=== PATIENT | female | born 1975 | race Caucasian/White ===

== ENCOUNTER 2018-04-03 05:57 | Day surgery (SDC) | payer BC ==
[~2018-04-03 05:57] MED LIST: Buffered Lidocaine 0.9% SYRIN* 5 ML/SYR SYRINGE INTRADERM ONE
[2018-04-03] MEDS ORDERED: Gabapentin CAP(*) 300 MG PO ONE (06:00)
[2018-04-03] MEDS ORDERED: Acetaminophen TAB* 325 MG PO ONE (06:00)
[2018-04-03] MEDS ORDERED: Gabapentin CAP(*) 300 MG ONE (06:27)
[2018-04-03] MEDS ORDERED: Acetaminophen TAB* 325 MG ONE (06:28)
[2018-04-03] MEDS ORDERED: Bupivacaine 0.5% W/EPI SDV* 30 ML VIAL ONE (06:59)
[2018-04-03] MEDS ORDERED: fentaNYL* 50 MCG/ML 2 ML VIAL (100 MCG VIAL) ONE (07:10)
[2018-04-03] MEDS ORDERED: Midazolam* 1 MG/ML 2 ML VIAL (2 MG) ONE (07:10)
[2018-04-03] MEDS ORDERED: Scopolamine 1.5 mg* PATCH ONE (07:24)
[2018-04-03] MEDS ORDERED: Cisatracurium* 2 MG/ML MDV 5 ML ONE (07:41)
[2018-04-03] MEDS ORDERED: KETAMINE HCL* 50 MG/ML 10 ML VIAL ONE (07:52)
[2018-04-03] MEDS ORDERED: Ondansetron INJ* 2 MG/ML VIAL ONE ×2 (07:52→10:37)
[2018-04-03] MEDS ORDERED: Dexamethasone IV* 4 MG/ML 1 ML (4 MG) ONE (07:52)
[2018-04-03] MEDS ORDERED: Ketorolac INJ* 30 MG/ML 1 ML VIAL ONE (07:52)
[2018-04-03] MEDS ORDERED: Famotidine IV* 10 MG/ML 2 ML (20 mg) ONE (07:52)
[2018-04-03] MEDS ORDERED: Lidocaine 2% PF * 5 ML VIAL ONE (07:52)
[2018-04-03] MEDS ORDERED: Propofol* 10 MG/ML 20 ML BTL IV PUSH ONE (07:52)
[2018-04-03] MEDS ORDERED: EPHEDrine (Pressors)* 50 MG/ML VIAL ONE (08:02)
[2018-04-03] MEDS ORDERED: Hetastarch 6% in NS* 500 ML IV ONE (08:04)
[2018-04-03] MEDS ORDERED: DiMENhydriNATE IV* 50 MG/ML VIAL IV PUSH PRN (08:27)
[2018-04-03] MEDS ORDERED: Acetaminophen IV 1GM/100ML * 1,000 MG/100 ML VIAL IVPB PRN (08:27)
[2018-04-03] MEDS ORDERED: PROCHLORPERAZINE INJ 5 MG/ML 2 ML VIAL IV PRN (08:27)
[2018-04-03] MEDS ORDERED: diPHENhydraMINE IV* 50 MG/ML 1 ml VIAL (BENADRYL) IV PRN (08:27)
[2018-04-03] MEDS ORDERED: fentaNYL* 50 MCG/ML 2 ML VIAL (100 MCG VIAL) IV PRN (08:27)
[2018-04-03] MEDS ORDERED: Ondansetron INJ* 2 MG/ML VIAL IV PRN (08:27)
[2018-04-03] MEDS ORDERED: Naloxone* 0.4 MG/ML 1 ML VIAL IV PRN (08:27)
[2018-04-03] MEDS ORDERED: HYDROmorphone INJ1* 1 MG/ML SYRINGE IV PRN (08:27)
[2018-04-03] MEDS ORDERED: Neostigmine Methylsulfate* 2 MG/2 ML SYRINGE ONE (08:43)
--- NOTE | 2018-04-03 10:31 | OP ---
DATE OF OPERATION: 04/03/18 - [facility] DATE OF : 77 SURGEON: Kevin Apodaca MD [employer] SUPERVISOR: None. ANESTHESIA: General anesthetic with endotracheal intubation. PRE-OP DIAGNOSES: Chronic pelvic pain, prior tubal ligation and prior endometrial ablation. POST-OP DIAGNOSES: Chronic pelvic pain, prior tubal ligation and prior endometrial ablation along with a stenotic internal cervical os and lower uterine segment. OPERATIVE PROCEDURE: Diagnostic laparoscopy. ESTIMATED BLOOD LOSS: None. SPECIMENS SENT TO PATHOLOGY: There were no specimens sent to pathology. IV FLUIDS: She received 1500 cc of IV fluid consisting of 1000 cc of IV crystalloid fluid and 500 cc of Hespan. URINE OUTPUT: 100 cc of clear urine. FINDINGS: Exam under anesthesia revealed normal external genitalia, normal mons pubis, normal clitoral elliott, normal urethral meatus, normal introitus. On speculum exam, she had normal vaginal mucosa. Her cervix was grossly normal. The cervical canal sounded 3 to 4 cm, was unable to sound the uterus secondary to the stenotic internal cervical os and lower uterine segment. On laparoscopy, she was noted to have a normal uterus, evidence of a prior tubal ligation with normal remaining tubes, normal ovaries, normal bowel and bladder. No adhesions were noted and a normal liver edge. DESCRIPTION OF PROCEDURE: The patient was taken to the operating room where she was identified. She was placed on the operating table where a general anesthetic was obtained with endotracheal intubation. She was then placed in the dorsal lithotomy position, prepped and draped in the normal sterile fashion. Attention was then brought onto the patient's perineum, where an exam under anesthesia was performed. The bladder was catheterized with a Head catheter and drained of clear urine, after which I inserted a side view speculum into the patient's vagina. Cervix was identified, grasped with single- toothed tenaculum. I proceeded to sound the uterus; however, I was unable to sound beyond 3 to 4 cm in the length of the cervix, as there was a stenotic internal cervical os and lower uterine segment. After the exam under anesthesia of perineum, I removed the speculum, I left a sponge stick in the patient's vagina. Attention was then brought onto the patient's abdomen where a 1 cm infraumbilical skin incision was made with a knife and carried through to underlying layer of fascia. The fascia was then grasped with Guillaume clamps, brought up into the incision, and incised immediately and through this incision a 5 mm trocar was introduced. The balloon in the trocar was insufflated with the air. The patient's abdomen was insufflated with CO2 gas. The patient was placed in a Trendelenburg position. A second trocar was introduced in the patient's right upper quadrant of the abdomen under direct visualization. I then proceeded to take a survey of the patient's intra-abdominal and pelvic anatomy and this revealed findings as noted above. The uterus was mobile. There were no adhesions. There was no evidence of endometriosis or any normal lesions. At this point, I proceeded to remove all instruments from the patient' s abdomen. The CO2 gas from the abdomen was also removed. The umbilical fascia incision was closed with 0 Polysorb suture in a running fashion and the skin incisions were closed using 4-0 Vicryl and a subcuticular stitch. The Head, instruments from the patient's vagina were also removed. Sponge, lap, needle counts were correct x2. She was then transferred to recovery room area in stable condition. [id number]/[facility] #: [id number] KRUPA
[2018-04-03 10:35] VITALS: BP 104/65
[2018-04-06] MEDS ORDERED: Scopolamine PATCH Remove* 1 NOTE MISC PATCH OFF ONE (08:28)
== END 2018-04-03 10:54 | disposition home or self-care (01) ==
LOC: OR 05:57
PROVIDERS: ATTEND Obstetrics & Gynecology
DX: R10.2 Pelvic and perineal pain (principal); N94.10 Unspecified dyspareunia; N94.6 Dysmenorrhea, unspecified; Q63.0 Accessory kidney; F41.9 Anxiety disorder, unspecified
CPT/HCPCS: A9270-GY; J1100; J1885; J2250; J2405; J2704; J3010

== ENCOUNTER 2018-07-24 07:35 | Observation (INO) | payer BC ==
[~2018-07-24 07:35] MED LIST changes: -Buffered Lidocaine 0.9% SYRIN* 5 ML/SYR SYRINGE INTRADERM ONE; +Buffered Lidocaine 1% SYRIN* 1 ML/SYRINGE INTRADERM ONE; +Lactated Ringers 1000 ML Bag* 1,000 ML IV SCH
[2018-07-24] MEDS ORDERED: Scopolamine 1.5 mg* PATCH ONE (10:15)
[2018-07-24] MEDS ORDERED: Famotidine IV* 10 MG/ML 2 ML (20 mg) ONE (10:15)
[2018-07-24] MEDS ORDERED: Bupivacaine 0.5% W/EPI SDV* 30 ML VIAL ONE (10:15)
[2018-07-24] MEDS ORDERED: Propofol* 10 MG/ML 20 ML BTL ONE ×2 (10:20→13:03)
[2018-07-24] MEDS ORDERED: Dexamethasone IV* 4 MG/ML 1 ML (4 MG) ONE (10:20)
[2018-07-24] MEDS ORDERED: fentaNYL* 50 MCG/ML 2 ML VIAL (100 MCG VIAL) ONE (10:20)
[2018-07-24] MEDS ORDERED: Midazolam* 1 MG/ML 5 ML VIAL (5 MG) ONE (10:21)
[2018-07-24] MEDS ORDERED: Rocuronium* 10 MG/ML VIAL ONE ×2 (10:21→11:21)
[2018-07-24] MEDS ORDERED: ceFAZolin VIAL(*) VIAL ONE (10:57)
[2018-07-24] MEDS ORDERED: ceFOXitin(*) 1 GM VIAL ONE (10:57)
[2018-07-24] MEDS ORDERED: ceFOXitin 2 GM IVPREMIX* 2 GM/50 ML BAG ONE (10:59)
[2018-07-24] MEDS ORDERED: Ketorolac INJ* 30 MG/ML 1 ML VIAL ONE (12:33)
[2018-07-24] MEDS ORDERED: Ondansetron INJ* 2 MG/ML VIAL ONE (12:33)
[2018-07-24] MEDS ORDERED: Neostigmine Methylsulfate* 3 MG/3 ML SYRINGE ONE (12:55)
[2018-07-24] MEDS ORDERED: Glycopyrrolate IV* 0.2 MG/ML 1 ML VIAL ONE (12:55)
[2018-07-24] MEDS ORDERED: Metoclopramide IV* 5 MG/ML 2 ML VIAL IV PRN (13:19)
[2018-07-24] MEDS ORDERED: Naloxone* 0.4 MG/ML 1 ML VIAL IV PRN (13:19)
[2018-07-24] MEDS ORDERED: DiMENhydriNATE IV* 50 MG/ML VIAL IV PUSH PRN (13:19)
[2018-07-24] MEDS ORDERED: PROCHLORPERAZINE INJ 5 MG/ML 2 ML VIAL IV PRN (13:19)
[2018-07-24] MEDS ORDERED: fentaNYL* 50 MCG/ML 2 ML VIAL (100 MCG VIAL) IV PRN (13:19)
[2018-07-24] MEDS ORDERED: HYDROmorphone INJ1* 1 MG/ML SYRINGE ONE (13:43)
[2018-07-24] MEDS: HYDROmorphone INJ1* 1 MG/ML SYRINGE IV PRN ×3 (13:46→15:55)
[2018-07-24] MEDS ORDERED: Lactated Ringers 1000 ML Bag* 1,000 ML IV SCH (14:00)
[2018-07-24] MEDS: Acetaminophen TAB* 325 MG PO PRN (18:22)
[2018-07-24] MEDS: Ibuprofen TAB* 600 MG PO PRN (20:46)
[2018-07-25] MEDS: Acetaminophen TAB* 325 MG PO PRN (02:54)
[2018-07-25 05:41] LABS: ABS Basophils 0 10^3/ul (0-0.2); ABS Eosinophils 0 10^3/ul (0-0.6); ABS Lymphocytes 1.3 10^3/ul (1.0-4.8); ABS Monocytes 0.8 10^3/ul (0-0.8); ABS Neutrophils 7.1 10^3/ul (1.5-7.7); ABS Nucleated RBC 0 10^3/ul; Eosinophil % 0.2 %; Hematocrit 37 % (35-47); Hemoglobin 12.8 g/dl (12.0-16.0); Lymphocyte % 14.1 %; Mean Corpuscular HGB Conc 35 g/dl (31-36); Mean Corpuscular Hemoglobin 30 pg (27-31); Mean Corpuscular Volume 87 fL (80-97); Mean Platelet Volume 7.8 fL (7.4-10.4); Nucleated Red Blood Cells % 0.1; Platelet Count 204 10^3/ul (150-450); Red Blood Count 4.28 10^6/ul (4.00-5.40); Red Cell Distribution Width 13 % (10.5-15); White Blood Count 9.3 10^3/ul (3.5-10.8)
[2018-07-25] MEDS ORDERED: Simethicone TAB* 80 MG TAB.CHEW PO PRN (09:11)
[2018-07-25] MEDS ORDERED: Docusate CAP* 100 MG PO PRN (09:12)
--- NOTE | 2018-07-25 11:03 | SURGPN ---
Subjective - Introduction -: 42 y/o lady with chronic pelvic pain. Admitted on: [07/24/18] Patient's surgical date: 07/24/18 Procedure completed: Laparoscopic supracervical hysterectomy - Medications -: Active Medications Generic Name Dose Route Start Last Admin Trade Name Etienneq PRN Reason Stop Dose Admin Acetaminophen 650 mg 07/24/18 13:25 07/25/18 02:54 Tylenol Tab* PO 650 mg Q6H PRN Administration PAIN Docusate Sodium 100 mg 07/25/18 09:12 Colace Cap* PO BID PRN CONSTIPATION Ibuprofen 600 mg 07/24/18 13:20 07/24/18 20:46 Motrin Tab* PO 600 mg Q6H PRN Administration PAIN - MILD Simethicone 80 mg 07/25/18 09:11 Mylicon Tab* PO Q6H PRN DYSPEPSIA - Comments Comments: Patient rates her pain 3/10 with PO medications. She denies Nausea/vomiting, chest pain or shortness of breath. Objective - Objective -: Vital Signs Temp Pulse Resp BP Pulse Ox 98.6 F 61 20 100/58 100 07/25/18 08:01 07/25/18 07:36 07/25/18 08:00 07/25/18 09:26 07/25/18 07:36 Laboratory Last Values WBC 9.3 10^3/ul (3.5-10.8) 07/25/18 04:57 RBC 4.28 10^6/ul (4.00-5.40) 07/25/18 04:57 Hgb 12.8 g/dl (12.0-16.0) 07/25/18 04:57 Hct 37 % (35-47) 07/25/18 04:57 MCV 87 fL (80-97) 07/25/18 04:57 MCH 30 pg (27-31) 07/25/18 04:57 MCHC 35 g/dl (31-36) 07/25/18 04:57 RDW 13 % (10.5-15) 07/25/18 04:57 Plt Count 204 10^3/ul (150-450) 07/25/18 04:57 MPV 7.8 fL (7.4-10.4) 07/25/18 04:57 Neut % (Auto) 76.6 % 07/25/18 04:57 Lymph % (Auto) 14.1 % 07/25/18 04:57 [place] % (Auto) 8.9 % 07/25/18 04:57 Eos % (Auto) 0.2 % 07/25/18 04:57 Baso % (Auto) 0.2 % 07/25/18 04:57 Absolute Neuts (auto) 7.1 10^3/ul (1.5-7.7) 07/25/18 04:57 Absolute Lymphs (auto) 1.3 10^3/ul (1.0-4.8) 07/25/18 04:57 Absolute Monos (auto) 0.8 10^3/ul (0-0.8) 07/25/18 04:57 Absolute Eos (auto) 0 10^3/ul (0-0.6) 07/25/18 04:57 Absolute Basos (auto) 0 10^3/ul (0-0.2) 07/25/18 04:57 Absolute Nucleated RBC 0 10^3/ul 07/25/18 04:57 Nucleated RBC % 0.1 07/25/18 04:57 - Intake and Output -: Intake & Output 07/23/18 07/24/18 07/25/18 07/26/18 06:59 06:59 06:59 06:59 Intake Total 4000 Output Total 1600 500 Balance 2400 -500 Weight 144 lb 6.4 oz Intake: IV Fluids 2980 LR 2980 Oral 1020 Output: Urine 500 Head 1600 Other: # Bowel Movements 0 Estimated Blood Loss MINIMAL Comment ADLs: Meal Record Start: 07/24/18 16: 28 Freq: Status: Active Protocol: Created 07/24/18 16:28 [id number] (Rec: 07/24/18 16:28 [id number]) Intake and Output Start: 07/24/18 16: 28 Freq: DAILY@0600,1400,2200 Status: Active Protocol: Created 07/24/18 16:28 [id number] (Rec: 07/24/18 16:28 [id number]) Document 07/24/18 21:22 [id number] (Rec: 07/24/18 21:24 [id number]) Document 07/25/18 06:14 [id number] (Rec: 07/25/18 06:15 [id number]) Surgical Physical Exam - Comments -: Lungs. CTA B/L CV. RRR no abnormal heart sounds noted. Abdomen. Soft, Distended, Normal bowel sounds. Umbilical and suprapubic incision pads are clean/dry/intact with no discharge. Assessment and Plan - Assessment -: Post op day 1 laproscopic supracervical hysterectomy, normal post op recovery. - Plan Surgical Plan of Care: Advance Diet, Increase Activity, Discontinue Head, Discontinue IV, Discharge
[2018-07-25] MEDS: Ibuprofen TAB* 600 MG PO PRN (11:13)
[2018-07-25 11:28] VITALS: BP 91/54
--- NOTE | 2018-08-01 12:20 | OP ---
DATE OF OPERATION: 07/24/18 - ROOM #332 DATE OF : 77 SURGEON: Kevin Apodaca MD [employer]ANCE [employer]PERATIONS REP: Lucy Castellanos MD ANESTHESIA: General anesthetic with endotracheal intubation. PRE-OP DIAGNOSIS: Chronic pelvic pain. POST-OP DIAGNOSIS: Chronic pelvic pain, pending pathology. OPERATIVE PROCEDURE: Laparoscopic supracervical hysterectomy. ESTIMATED BLOOD LOSS: 60 cc. SPECIMENS SENT TO PATHOLOGY: Morcellated uterus. FLUIDS: She received 2 L of IV crystalloid fluid. URINE OUTPUT: 600 cc of clear urine. FINDINGS: The patient was noted to have bilateral normal ovaries, normal remaining fallopian tubes and indication of a prior tubal ligation. The uterus was noted to be adherent to the anterior abdominal wall and bladder with dense adhesions. There was normal bowel and normal bladder noted. DESCRIPTION OF PROCEDURE: The patient was taken to the operating room where she was identified. She was placed on the operating table, where a general anesthetic with endotracheal intubation was obtained without difficulty. She was then placed in the dorsal lithotomy position, prepped and draped in normal sterile fashion. Attention was then brought onto the patient's perineum where the bladder was catheterized with a Head catheter and drained of clear urine. In the vagina, a sponge stick was introduced. Prior to the introduction of the sponge stick, I attempted to introduce an uterine manipulator; however, I was unable to do so due to severe cervical stenosis. Attention was then brought onto the patient's abdomen, where a 4 cm infraumbilical skin incision was made with a knife vertically. The fascia was then grasped with Guillaume clamps, brought up to the incision, and incised medially and extended 4 cm in a vertical position. The Guillaume clamps were then replaced with 0 Polysorb sutures. Entry into the peritoneum was confirmed using a Dominique clamp, and in this incision, a single site operative port was introduced, and through the port , 3 trocar ports were placed. The patient's abdomen was insufflated with CO2 gas. She was then placed in the deep Trendelenburg position, and on survey, the patient's pelvis revealed findings as noted above. At this point, we proceeded with our hysterectomy. The uteroovarian ligaments were grasped bilaterally with LigaSure. They were then coagulated and transected. The same was done with the round ligaments bilaterally, they were grasped with a LigaSure , coagulated, and transected. A window was then made in the anterior leaf of the broad ligament with the LigaSure device. We then infiltrated the space and I was able to then dissect inferiorly using blunt dissection. The anterior leaf of the broad ligament was then dissected towards the bladder. The bladder anteriorly was densely adherent to the lower uterine segment. This was taken down by using sharp dissection with laparoscopic scissors. Once I was able to mobilize the bladder away from the lower uterine segment, I then proceeded to remove the adhesions from the anterior uterine wall to the abdomen with LigaSure device by coagulation and transection. At this point, the uterus was freed from the uteroovarian ligament and the round ligament. I was able to identify the uterine arteries bilaterally. These were grasped with LigaSure device and triple clip, coagulated and then transected and further mobilized inferiorly medial to the cervix. A SupraLoop was wrapped around the uterocervical junction. This was connected to electrocautery at a 100 pure-cut setting and the uterus was then decapitated from the cervix using the SupraLoop. At this point, the uterus was mobilized away from the pelvis. The cervical stump had minor bleeding from small blood vessels in peritoneum. These were grasped with LigaSure and coagulated. We then proceeded to irrigate the pelvis and irrigation fluid was then suctioned and all the surgical pedicles were completely hemostatic. At this point, we then proceeded to place an Endobag into the patient's abdomen. The uterus was placed in the bag under laparoscopic guidance. We then removed the single site trocar from the patient' s abdomen at the umbilicus. The Endobag was then removed through this site with along the uterus. The uterus was then grasped and was successfully morcellated using sharp dissection in its entirety and then sent to pathology. The Endobag was removed. It was noted to be completely intact. This was confirmed by placing fluid into the bag. At this point, we then proceeded to reinflate the patient's abdomen. We replaced the single site trocar. A survey of the patient's pelvis and surgical site again showed completely hemostatic pedicles. So at this point, we proceeded to remove all the instruments from the patient's abdomen. The CO2 gas from the abdomen was removed. The fascia at the umbilicus was closed using 0 Polysorb suture in a running fashion and the skin was closed with subcuticular 4-0 stitch. Previously, there had been a second trocar introduced 4 cm above the symphysis pubis. This is the site through which we introduced the SupraLoop. This incision suprapubically was closed using 4-0 Vicryl in a subcuticular fashion. All the instruments were also removed from the patient's vagina. Sponge, lap, and needle counts were correct x2, and she was then transferred to the recovery room area in stable condition. [id number]/[facility] #: [id number] [facility] HEALTHRocio
--- NOTE | 2018-08-19 22:50 | DS ---
DISCHARGE SUMMARY: DATE OF ADMISSION: 07/24/18 DATE OF DISCHARGE: 07/25/18 HOSPITAL COURSE: Ms. Crowley is a 42-year-old lady who, on 07/24/18, underwent a laparoscopic supracervical hysterectomy for chronic intermittent pelvic pain and dysmenorrhea. Her surgery was uneventful. She was transferred to recovery room and subsequently admitted for overnight observation. On postop day 1, 07/25/18, the patient's vital signs remained stable, afebrile and normal CBC. She had a normal postoperative physical exam. She was tolerating a regular diet. She was ambulating and voiding without difficulty. Her pain was controlled with oral medications. She was therefore discharged home on . The patient had a follow up appointment at my office 1 week after her surgery. Please refer to the patient's laboratory findings during this hospitalization. Discharge instructions were reviewed with the patient. [id number] #: [id number] MTDD
== END 2018-07-25 13:49 | disposition home or self-care (01) ==
LOC: OR 07:35 → SSU 16:54
PROVIDERS: ADMIT Obstetrics & Gynecology; ATTEND Obstetrics & Gynecology
DX: N85.00 Endometrial hyperplasia, unspecified (principal); R10.2 Pelvic and perineal pain; M51.26 Other intervertebral disc displacement, lumbar region; Z87.442 Personal history of urinary calculi; Z98.51 Tubal ligation status; N94.6 Dysmenorrhea, unspecified
CPT/HCPCS: 36415; 85025; 88307; 96374; 96375; 96376; A9270-GY; G0378; J0690; J0694; J1100; J1170; J1885; J2250; J2405; J2704; J2710; J3010

== ENCOUNTER 2018-08-19 14:15 | Emergency (ER) | payer BC ==
--- NOTE | 2018-08-19 16:38 | ED ---
GI/ HPI - HPI Summary HPI Summary: This pt is a 42 y/o female presenting to [facility] [place] by Dr. Duarte for left flank pain, abd pain, and fever s/p laparascopic hysterectomy on 07/24/18. Pt reports she had a hysterectomy done by Dr. Apodaca on 07/24/18. Pt notes that she began to do her normal regular work one week ago. Pt states she has been feeling hot, nauseous, and diaphoretic since then. Pt notes she had an episode of diarrhea that has since resolved. Today she presents with left flank pain, abd pain described as tense, and fever of 102 F earlier. She notes she took ibuprofen today for the pain and fever, with relief of fever but minimal relief of pain. Denies vomiting. Pt denies heavy lifting. PMHx: herniated disc on the right, kidney stones on the left side. Dr. Looney is her urologist. - History of Current Complaint Chief Complaint: EDAbdPain Time Seen by Provider: 08/19/18 16:33 Stated Complaint: POST OP 07/24/18 POSS BLEED PER PT. Hx Obtained From: Patient Onset/Duration: Started Days Ago, Still Present Timing: Lasting Days Current Severity: Severe Pain Intensity: 9 Location of Pain: Flank - left Associated Signs and Symptoms: Positive: Nausea, Diarrhea - now resolved, Fever , Flank Pain - left, Abdominal Pain. Negative: Vomiting Aggravating Factor(s): Nothing Alleviating Factor(s): Nothing - Allergy/Home Medications Allergies/Adverse Reactions: Allergies Allergy/AdvReac Type Severity Reaction Status Date / Time codeine AdvReac Severe PROJECTILE Verified 08/19/18 14:37 VOMITING Home Medications: Home Medications Ergocalciferol CAP* [Drisdol CAP*] 50,000 unit PO WEEKLY 08/19/18 [History Confirmed 08/19/18] PMH/Surg Hx/FS Hx/Imm Hx GI History: Reports: Hx Irritable Bowel - PATIENT REPORTS SINCE CHOLECYSTECTOMY History: Reports: Hx Kidney Stones - HX OF Musculoskeletal History: Reports: Other Musculoskeletal History - herniated disc on the right Sensory History: Reports: Hx Contacts or Glasses - GLASSES FOR READING Denies: Hx Hearing Aid Opthamlomology History: Reports: Hx Contacts or Glasses - GLASSES FOR READING - Cancer History Hx Chemotherapy: No Hx Radiation Therapy: No - Surgical History Surgery Procedure, Year, and Place: 1998- CHOLECYSTECTOMY. 2004,2007- SECTIONS. 2008-KIDNEY STONE REMOVAL. ENDOMETRIAL ABLATION-2008. exploratory laparoscopic of uterus 03/2018. Laparoscopic hysterectomy on 07/24/18 Hx Anesthesia Reactions: Yes - NAUSEA AND VOMITING, after 03/2018 surgery no issues Infectious Disease History: No Infectious Disease History: Denies: Traveled Outside the [place] in Last 30 Days - Family History Known Family History: Positive: Cardiac Disease - father with NM, Hypertension - father - Social History Alcohol Use: None Substance Use Type: Reports: None Smoking Status (MU): Never Smoked Tobacco Have You Smoked in the Last Year: No Review of Systems Constitutional: Other - POS: hot Positive: Fever, Skin Diaphoresis Positive: Abdominal Pain, Diarrhea - now resolved, Nausea. Negative: Vomiting Musculoskeletal: Other - POS: left lower back pain All Other Systems Reviewed And Are Negative: Yes Physical Exam - Summary Physical Exam Summary: VITAL SIGNS: Reviewed. GENERAL: Patient is a well-developed and nourished female who is lying comfortable in the stretcher. Patient is not in any acute respiratory distress. HEAD AND FACE: Normocephalic and atraumatic. EYES: PERRLA, EOMI x 2, No injected conjunctiva. EARS: Hearing grossly intact. Ear canals and tympanic membranes are WNL. MOUTH: Oropharynx within normal limits. NECK: Supple, trachea is midline, no adenopathy, no JVD. CHEST: Symmetric, no tenderness at palpation LUNGS: Clear to auscultation bilaterally. No wheezing or crackles. CVS: RRR, S1 and S2 present, no murmurs or gallops appreciated. ABDOMEN: Soft, left flank tenderness. No signs of distention. Positive bowel sounds. No rebound no guarding, and no masses palpated. No abdominal bruit or pulsations. EXTREMITIES: FROM in all major joints, no edema, no cyanosis or clubbing. NEURO: Alert and oriented x 3. No acute neurological deficits. Speech is normal. SKIN: Dry and warm Triage Information Reviewed: Yes Vital Signs On Initial Exam: Initial Vitals Temp Pulse Resp BP Pulse Ox 99.2 F 76 16 127/50 100 08/19/18 14:32 08/19/18 14:32 08/19/18 14:32 08/19/18 14:32 08/19/18 14:32 Vital Signs Reviewed: Yes Diagnostics - Vital Signs Vital Signs Temp Pulse Resp BP Pulse Ox 08/19/18 14:32 99.2 F 76 16 127/50 100 - Laboratory Result Diagrams: 08/19/18 16:49 08/19/18 16:49 Lab Statement: Any lab studies that have been ordered have been reviewed, and results considered in the medical decision making process. - CT Abdomen/Pelvis CT CT Interpretation Completed By: Radiologist Summary of CT Findings: IMPRESSION: Changes of recent hysterectomy. Trace free fluid seen in the pelvis. Slight increased small bowel gas may represent a nonspecific enteritis. Status post cholecystectomy and mild fatty liver. Dr. Hinkle has reviewed this report. Re-Evaluation - Re-Evaluation First Eval Re-Evaluation Time: 18:52 Comment: I reviewed the labs and CT with the pt. She will be discharged home with follow up from her PCP. GIGU Course/Dx - Course Assessment/Plan: This patient is a 42-year-old female who presents to the emergency department with a chief complaint of having left flank pain. She reports that she had a hysterectomy on 07/24/2018 with no complications. Test results without any significant abnormality. There is no suspicion for infection. Abdominal and pelvic CT IMPRESSION: Changes of recent hysterectomy. Trace free fluid seen in the pelvis. Slight increased small bowel gas may represent a nonspecific enteritis. Status post cholecystectomy and mild fatty liver. In the ED course the patient was given Toradol for the pain. Likely the pain is just from a musculoskeletal pain. However the patient was given instructions to return to the emergency room if she develops a fever, increase in pain, nausea vomiting or diarrhea. The patient understands and agrees. I discussed all the findings and test results with the patient. Patient was instructed to return to the emergency room immediately if any of the symptoms return or worsens. Plan of care was discussed with the patient and understands and agrees. All questions were answered at patient satisfaction. There were no further complaints or concerns. Lung exam before discharge: CTA B/ L. Good air exchange. No wheezing or crackles heard. CVS: S1 and S2 present. No murmurs appreciated. Patient is alert and oriented x 3. Patient is hemodynamically stable. Patient will be discharged home with follow up from her PCP in the next 2-3 days. - Diagnoses Provider Diagnoses: Back pain, Flank pain Discharge - Sign-Out/Discharge Documenting (check all that apply): Patient Departure - Discharge home Patient Received Moderate/Deep Sedation with Procedure: No - Discharge Plan Condition: Stable Disposition: HOME Patient Education Materials: Flank Pain (ED), Back Pain (ED) Referrals: Linda Duarte MD [Primary Care Provider] - Additional Instructions: FOLLOW UP WITH YOUR PRIMARY CARE PROVIDER IN 2-3 DAYS. RETURN TO THE ED FOR ANY NEW OR WORSENING SYMPTOMS. - Billing Disposition and Condition Condition: STABLE Disposition: Home - Attestation Statements Document Initiated by Scribe: Yes Documenting Scribe: Lisa Fishman Provider For Whom Shaeibe is Documenting (Include Credential): Earnest Hinkle MD Scribe Attestation: Lisa Muñiz, scribed for Earnest Hinkle MD on 08/19/18 at 1902. Scribe Documentation Reviewed: Yes Provider Attestation: The documentation as recorded by the Lisa pulliam accurately reflects the service I personally performed and the decisions made by , Earnest Hinkle MD Status of Scribe Document: Viewed
[2018-08-19] MEDS ORDERED: NS 0.9% 1000 ML** 1,000 ML IV ONE (16:40)
[2018-08-19 16:56] LABS: ABS Basophils 0.1 10^3/ul (0-0.2); ABS Eosinophils 0.1 10^3/ul (0-0.6); ABS Lymphocytes 1.4 10^3/ul (1.0-4.8); ABS Monocytes 0.5 10^3/ul (0-0.8); ABS Neutrophils 4.6 10^3/ul (1.5-7.7); ABS Nucleated RBC 0 10^3/ul; Hematocrit 42 % (33-41); Hemoglobin 14.2 g/dL (12.0-16.0); Lymphocyte % 21.8 %; Mean Corpuscular HGB Conc 34 g/dL (31-36); Mean Corpuscular Hemoglobin 30 pg (27-31); Mean Corpuscular Volume 87 fL (80-97); Mean Platelet Volume 7.5 fL (7.4-10.4); Nucleated Red Blood Cells % 0.1; Platelet Count 241 10^3/uL (150-450); Red Blood Count 4.81 10^6 /uL (3.70-4.87); Red Cell Distribution Width 13 % (10.5-15); White Blood Count 6.6 10^3/uL (3.5-10.8)
[2018-08-19 17:15] LABS: ALT 16 U/L (7-52); AST 21 U/L (13-39); Albumin 4.6 g/dL (3.2-5.2); Alkaline Phosphatase 48 U/L (34-104); Anion Gap 8 mmol/L (2-11); BUN/Creatinine Ratio 16.9 (8-20); Blood Urea Nitrogen 12 mg/dL (6-24); C Reactive Protein < 1.00 mg/L (<8.01); CO2 Carbon Dioxide 25 mmol/L (22-32); Calcium 9.1 mg/dL (8.6-10.3); Chloride 105 mmol/L (101-111); EGFR African American 109.8 (>60); EGFR Non-African American 90.7 (>60); Globulin 2.3 g/dL (2-4); Glucose 90 mg/dL (70-100); Potassium 3.9 mmol/L (3.5-5.0); Sodium 138 mmol/L (135-145); Total Protein 6.9 g/dL (6.4-8.9)
[2018-08-19] MEDS ORDERED: Iohexol 300* (CONTRAST) 10 ML SDV IV ONE (17:22)
[2018-08-19] MEDS ORDERED: Ketorolac INJ* 30 MG/ML 1 ML VIAL IV PUSH ONE (18:49)
[2018-08-19 19:12] VITALS: BP 111/75
[2018-08-19 19:35] LABS: Urine Appearance Clear; Urine Bilirubin Negative (Negative); Urine Blood Negative (Negative); Urine Color Yellow; Urine Glucose Negative (Negative); Urine Ketones 1+ (Negative); Urine Nitrite Negative (Negative); Urine Protein Negative (Negative); Urine Specific Gravity 1.053 (1.010-1.030); Urine Urobilinogen Negative (Negative)
== END 2018-08-19 19:12 | disposition home or self-care (01) ==
LOC: ED 14:15
DX: R10.84 Generalized abdominal pain (principal); M54.5 Low back pain; K76.0 Fatty (change of) liver, not elsewhere classified; R11.0 Nausea; R61 Generalized hyperhidrosis; R50.9 Fever, unspecified; Z87.442 Personal history of urinary calculi; Z90.710 Acquired absence of both cervix and uterus; Z90.49 Acquired absence of other specified parts of digestive tract; Z88.5 Allergy status to narcotic agent; Z82.49 Family history of ischemic heart disease and other diseases of the circulatory system
CPT/HCPCS: 36415; 74177; 80053; 81003; 83605; 83690; 85025; 86140; 86850; 86900; 86901; 96361; 96374; 99283; J1885; Q9967